=== PATIENT | female | born 1970 | race Caucasian/White ===

== ENCOUNTER → 2016-12-20 | Outpatient (CLI) | payer BC ==
[~2016-12-20] MED LIST: DIPH-437 PO; IBUP-1050 PO; JOLESSA PO
== END | disposition home or self-care (01) ==
LOC: C.PAPS 09:51
PROVIDERS: ATTEND Obstetrics & Gynecology
DX: Z01.419 Encounter for gynecological examination (general) (routine) without abnormal findings (principal)

== ENCOUNTER → 2017-02-01 | Outpatient (CLI) | payer BC ==
--- NOTE | 2017-02-01 16:36 | MAMMOGRAPHY REPORT ---
BILATERAL DIGITAL SCREENING MAMMOGRAM TOMOSYNTHESIS WITH CAD: 02/01/2017 CLINICAL HISTORY: Routine screening. Patient has no complaints. TECHNIQUE: Breast tomosynthesis in addition to standard 2D mammography was performed. Current study was also evaluated with a Computer Aided Detection (CAD) system. COMPARISON: Comparison is made to exam dated: 06/11/2013 mammogram - [facility]. BREAST COMPOSITION: The tissue of both breasts is heterogeneously dense, which may obscure small ma sses. FINDINGS: No suspicious masses, calcifications, or areas of architectural distortion are noted in e ither breast. There has been no significant interval change compared to prior exams. IMPRESSION: ACR BI-RADS CATEGORY 1: NEGATIVE There is no mammographic evidence of malignancy. A 1 year screening mammogram is recommended. The p atient will receive written notification of the results. Approximately 10% of breast cancers are not detected with mammography. A negative mammographic repor t should not delay biopsy if a clinically suggestive mass is present. Sari Post M.D. ah/:02/01/2017 15:30:07 Admissions Advisor: Cristine Huynh, [facility] letter sent: Normal 1/2 BI-RADS Code: ACR BI-RADS Category 1: Negative
== END | disposition home or self-care (01) ==
LOC: C.MAMM 14:54
PROVIDERS: ATTEND Obstetrics & Gynecology
DX: Z12.31 Encounter for screening mammogram for malignant neoplasm of breast (principal)

== ENCOUNTER → 2017-08-21 | Outpatient (CLI) | payer BC ==
--- NOTE | 2017-08-21 14:38 | DIAGNOSTIC IMAGING REPORT ---
BILATERAL LOWER EXTREMITY VENOUS DOPPLER CLINICAL HISTORY: Lower extremity swelling. Recent surgery. COMPARISON STUDY: No previous studies for comparison. TECHNIQUE: Sonography of the deep venous system of the bilateral lower extremities was performed. Compression and augmentation were evaluated. FINDINGS: The bilateral common femoral, superficial femoral and popliteal veins were compressible. Augmentation was normal. Flow was shown within the deep calf vessels. IMPRESSION: No evidence of deep venous thrombus within the bilateral lower extremities. Electronically signed by: Jose Spicer M.D. 08/21/2017 2:36 PM Dictated Date/Time: 08/21/2017 2:36 PM
== END | disposition home or self-care (01) ==
LOC: C.ULTR 13:58
PROVIDERS: ATTEND Family Medicine
DX: M79.89 Other specified soft tissue disorders (principal); M79.604 Pain in right leg; M79.605 Pain in left leg

== ENCOUNTER → 2017-09-21 | Outpatient (CLI) | payer BC ==
[2017-09-21 18:26] LABS: BASO % 0.4 %; BASO ABS # 0.03 K/uL (0-0.2); COMPLETE YES; EOS % 4.8 %; HEMATOCRIT 38.3 % (37-47); IG% 0.3 %; LYMPH % 39.9 %; LYMPH ABS # 3.02 K/uL (1.2-3.4); MEAN CELL VOLUME 89.7 fL (80-100); MEAN CORPUSCULAR HEMOGLOBIN 31.1 pg (25-34); MEAN CORPUSCULAR HGB CONC 34.7 g/dl (32-36); MEAN PLATELET VOLUME 9.5 fL (7.4-10.4); MONO % 5.9 %; NEUT % 48.7 %; PLATELET COUNT 321 K/uL (130-400); RED BLOOD COUNT 4.27 M/uL (4.2-5.4); WHITE BLOOD COUNT 7.57 K/uL (4.8-10.8)
[2017-09-21 19:05] LABS: ALKALINE PHOSPHATASE 58 U/L (45-117); ALT/SGPT 44 U/L (12-78); AMYLASE 55 U/L (25-115); AST/SGOT 36 U/L (15-37)
[2017-09-24 14:20] LABS: C-REACTIVE PROT HIGHSEN 6.9 MG/L
== END | disposition home or self-care (01) ==
LOC: C.LAB 17:51
PROVIDERS: ATTEND Nurse Practitioner Family
DX: R10.13 Epigastric pain (principal); L50.8 Other urticaria

== ENCOUNTER → 2017-09-27 | Outpatient (CLI) | payer BC ==
--- NOTE | 2017-09-27 12:19 | DIAGNOSTIC IMAGING REPORT ---
BILIARY ULTRASOUND CLINICAL HISTORY: EPIGASTRIC PAIN COMPARISON STUDY: Renal ultrasound dated 12/12/2011 FINDINGS: The pancreas appears sonographically normal. The liver appears sonographically normal. The gallbladder appears sonographically normal. There is no ductal dilatation. The common bile duct measures 4 mm. There is no right-sided hydronephrosis. IMPRESSION: Normal study Electronically signed by: Raymond Lion M.D. 09/27/2017 12:18 PM Dictated Date/Time: 09/27/2017 12:17 PM
== END | disposition home or self-care (01) ==
LOC: C.ULTR 11:52
PROVIDERS: ATTEND Nurse Practitioner Family
DX: R10.13 Epigastric pain (principal)

== ENCOUNTER → 2017-11-27 | Outpatient (CLI) | payer BC ==
[2017-11-29 18:36] LABS: CLAM CLASS 0/1; CLAM IGE 0.17 KU/L; CRAB CLASS 1; CRAB IGE 0.44 KU/L; LOBSTER CLASS 0/1; LOBSTER IGE 0.33 KU/L; SHRIMP CLASS 1; SHRIMP IGE 0.52 KU/L
== END | disposition home or self-care (01) ==
LOC: C.LAB1850 16:47
PROVIDERS: ATTEND Internal Medicine Pulmonary Disease
DX: L50.8 Other urticaria (principal); L50.3 Dermatographic urticaria; R12 Heartburn; J30.9 Allergic rhinitis, unspecified

== ENCOUNTER → 2017-12-24 | Outpatient (CLI) | payer BC | END | disposition home or self-care (01) | LOC: C.PAPS 08:55 | PROVIDERS: ATTEND Obstetrics & Gynecology | DX: Z01.419 Encounter for gynecological examination (general) (routine) without abnormal findings (principal) ==

== ENCOUNTER → 2018-07-04 | Outpatient (CLI) | payer BC ==
--- NOTE | 2018-07-04 12:59 | DIAGNOSTIC IMAGING REPORT ---
TWO VIEW CHEST CLINICAL HISTORY: Chronic pruritus. FINDINGS: PA and lateral chest radiographs are compared to chest x-ray and chest CT dated 06/25/2012. The cardiomediastinal silhouette is unremarkable. The lungs and pleural spaces are clear. There is no pneumothorax. The bony thorax appears intact. IMPRESSION: No active disease in the chest. Electronically signed by: Murali Beltran M.D. 07/04/2018 12:58 PM Dictated Date/Time: 07/04/2018 12:57 PM
== END | disposition home or self-care (01) ==
LOC: C.RAD 12:34
PROVIDERS: ATTEND Dermatology
DX: L63.9 Alopecia areata, unspecified (principal)

== ENCOUNTER 2020-01-20 23:02 | Observation (INO) ==
[2020-01-20] MEDS ORDERED: ONDANSETRON INJ 2 MG/ML 2 ML VIAL IV STA (23:24)
[2020-01-20] MEDS ORDERED: MoRPHine SULFATE 10 MG/ML CARP/VIAL IV STA (23:24)
[2020-01-20] MEDS ORDERED: SODIUM CHLORIDE 0.9% 1000ML 1,000 ML IV ONE (23:24)
[2020-01-20 23:51] LABS: Basophils # (auto) 0.02 K/uL (0-0.2); Basophils % (auto) 0.1 %; Eosinophils # (auto) 0.01 K/uL (0-0.5); Hematocrit (blood only) 39.6 % (37-47); Hemoglobin 13.6 g/dL (12.0-16.0); Immature Granulocytes # (auto) 0.05 K/uL (0.00-0.02); Immature Granulocytes % (auto) 0.2 %; Lymphocytes # (auto) 0.87 K/uL (1.2-3.4); Lymphocytes % (auto) 4.3 %; Mean Corpuscular Hemoglobin 30.6 pg (25-34); Mean Corpuscular Hgb Conc 34.3 g/dL (32-36); Mean Corpuscular Volume 89.2 fL (80-100); Mean Platelet Volume 9.6 fL (7.4-10.4); Monocytes # (auto) 0.43 K/uL (0.11-0.59); Monocytes % (auto) 2.1 %; Neutrophils # (auto) 18.78 K/uL (1.4-6.5); Neutrophils % (auto) 93.3 %; Platelet Count 344 K/uL (130-400); RDW Coefficient of Variation 12.4 % (11.5-14.5); RDW Standard Deviation 39.8 fL (36.4-46.3); Red Blood Count 4.44 M/uL (4.2-5.4); White Blood Count 20.16 K/uL (4.8-10.8)
[2020-01-20 23:56] LABS: Appearance Urine Cloudy (Clear); Bacteria Urine Automated Negative (Negative); Bilirubin Urine Negative (Negative); Blood Urine Trace (Negative); Color Urine Yellow; Epithelial Cell Urine Auto >30 /lpf (0-5); Glucose Urine UA Negative (Negative); Leukocyte Esterase Urine Negative (Negative); Nitrite Urine Negative (Negative); Protein Urine Negative (Negative); RBC Urine Automated 0-4 /hpf (0-4); Specific Gravity Urine 1.025 (1.000-1.030); Urobilinogen Urine Negative (Negative)
[2020-01-21] LABS: Ketones Urine 4+ (Negative)
[2020-01-21] MEDS ORDERED: HYDROmorphone INJ 0.5 MG/0.5 ML SYR IV STA (00:13)
[2020-01-21 00:14] LABS: Albumin Level 3.7 gm/dl (3.4-5.0); BUN Creatinine Ratio 11.9 (10-20); Calcium 9.4 mg/dl (8.5-10.1); Creatinine Clr Calc Pharmacy 78.8 ml/min; Est GFR (African American) 80.6; Est GFR (Non-African American) 69.6; Potassium 3.9 mmol/L (3.5-5.1)
[2020-01-21 00:17] LABS: Albumin Globulin Ratio 0.9 (0.9-2); Bilirubin,Total 0.7 mg/dl (0.2-1); Total Protein 7.7 gm/dl (6.4-8.2)
[2020-01-21] MEDS ORDERED: IOVERSOL 100ml IV PRN (00:40)
[2020-01-21] MEDS ORDERED: ONDANSETRON INJ 2 MG/ML 2 ML VIAL IV PRN ×2 (01:47→08:20)
[2020-01-21] MEDS ORDERED: ACETAMINOPHEN 1,000 MG/100 ML VIAL IV PRN (01:47)
[2020-01-21] MEDS ORDERED: HYDROmorphone INJ 1 MG/ML SYRINGE IV PRN (01:47)
[2020-01-21] MEDS ORDERED: HYDROmorphone INJ 0.5 MG/0.5 ML SYR IV PRN (01:50)
[2020-01-21] MEDS: SODIUM CHLORIDE 0.9% 1000ML 1,000 ML IV SCH ×2 (01:59→15:08)
--- NOTE | 2020-01-21 04:13 | Emergency Department Note ---
History of Present Illness General Chief complaint: Abdominal Pain Stated complaint: STOMACH PAIN, VOMITING Time Seen by Provider: 01/20/20 23:09 Source: patient Mode of arrival: ambulatory Limitations: no limitations History of Present Illness Maximum Pain Intensity: 5 This patient is a 49-year-old female who presents to the emergency department for evaluation of abdominal pain and vomiting. Patient reports that her stomach was slightly upset last night, but she had no significant pain. She states that about 8 hours prior to arrival, she ate lunch and then developed a burning pain throughout her abdomen. Pain has gradually worsened and has moved from the upper abdomen down to the lower abdomen. She has vomited 7 times. She reports she has had chills. She states pain worsens with movement. She has not taken any medication for the pain. She rates her current discomfort a 7/10. She denies any medical problems. She has had 2 prior C-sections. She states that her last bowel movement was this morning, which is unusual for her because she usually has 3-4 bowel movements per day. She has not taken her temperature. Home Medications Home Medications Medication Instructions Recorded Confirmed Type Elderberry Supplement 1 dose PO DAILY 01/20/20 01/20/20 History levonorgestrel-ethinyl estrad 1 tab PO DAILY 01/20/20 01/20/20 History [Jolessa] omega 7-cku-gie-fish oil [Fish Oil] 1 cap PO DAILY 01/20/20 01/20/20 History Allergies Allergy/AdvReac Type Severity Reaction Status Date / Time moxifloxacin [From Avelox] Allergy Mild nausea/vomi Verified 01/20/20 23:52 ting Quinolones AdvReac Unknown N& V Verified 01/20/20 23:52 CAT GUT SUTURES AdvReac Unknown OPENED Uncoded 01/20/20 23:52 INCISION AND DRAINAGE Past Med/Surg History Medical History (Updated 01/21/20 @ 06:35 by Adeline Walters PA-C) No significant past medical history Surgical History H/O vein stripping History of section S/P wisdom tooth extraction Social History Preferred Language: Italian Communication Ability: 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 Beliefs That Will Affect Care: None Current Living Situation: Spouse Feels Safe at Home: Yes Smoking Status: Never smoker Hx Alcohol Use: Yes Hx Substance Use: No Review of Systems A total of 10 systems reviewed and were otherwise negative Physical Exam Vital Signs Vital Signs - 24 hr 01/20/20 23:06 01/20/20 23:44 01/21/20 00:00 Temperature 36.5 C Temperature Source Oral Pulse Rate 87 90 87 Pulse Rate from SpO2 Sensor 89 88 Respiratory Rate 18 24 18 Blood Pressure 101/72 141/92 H 149/90 H Blood Pressure Mean 81 113 107 Pulse Oximetry 100 100 96 Oxygen Delivery Method Room Air Room Air Room Air Sepsis Recent Fever Within 48 Hours No Sepsis New/Unexplained Change in Mental Status No Sepsis Action Taken by Nursing No Action Required 01/21/20 00:42 01/21/20 01:00 Temperature Temperature Source Pulse Rate 94 H 81 Pulse Rate from SpO2 Sensor 94 H 86 Respiratory Rate 17 18 Blood Pressure 158/83 H 148/86 H Blood Pressure Mean 100 101 Pulse Oximetry 99 97 Oxygen Delivery Method Room Air Room Air Sepsis Recent Fever Within 48 Hours Sepsis New/Unexplained Change in Mental Status Sepsis Action Taken by Nursing VITALS: Vitals are noted on the nurse's note and reviewed by myself. GENERAL: This is a 49-year-old female, uncomfortable., well-developed well- nourished. SKIN: The skin was without rashes. EARS: External auditory canals clear, tympanic membranes pearly obrien without erythema or effusion bilaterally. EYES: Pupils equal round and reactive to light and accommodation. No scleral icterus. MOUTH: Mucous membranes moist. Tonsils are not enlarged. Pharynx without erythema or exudate. NECK: Supple without nuchal rigidity. No lymphadenopathy. HEART: Regular rate and rhythm without murmurs gallops or rubs. LUNGS: Clear to auscultation bilaterally without wheezes, rales or rhonchi. ABDOMEN: Positive bowel sounds x 4. Abdomen is soft with mild tenderness throughout, significant tenderness to palpation in the right lower quadrant. Positive rebound tenderness. NEURO: Patient was alert and oriented to person place and time. Course Consultations Consultation #1: Dr. Bolton - general surgery Administered Medications Hydromorphone HCl (Dilaudid) 0.5 mg IV Q3H PRN PRN Reason: MODERATE Pain (Scale 4,5,6) Stop: 02/04/20 01:49 Last Admin: 01/21/20 03:46 Dose: 0.5 mg Documented by: [id number] Acetaminophen (Ofirmev) 1,000 mg in 100 mls @ 400 mls/hr IV Q8H PRN PRN Reason: MILD Pain (Scale 1,2,3) Stop: 01/24/20 01:46 Last Infusion: 01/21/20 02:34 Dose: 0 mls/hr Documented by: [id number] Admin: 01/21/20 01:59 Dose: 400 mls/hr Documented by: [id number] Sodium Chloride (Nss 1000ml) 1,000 mls @ 150 mls/hr IV .Q6H40M JOSE Stop: 02/20/20 01:46 Last Admin: 01/21/20 01:59 Dose: 150 mls/hr Documented by: [id number] Ioversol (Optiray 320 100ml) 100 ml IV ONCE PRN PRN Reason: Interaction Checking Stop: 01/25/20 00:39 Last Admin: 01/21/20 00:40 Dose: 93 ml Documented by: [id number] Discontinued Medications Hydromorphone HCl (Dilaudid) 0.5 mg IV NOW STA Stop: 01/21/20 00:14 Last Admin: 01/21/20 00:16 Dose: 0.5 mg Documented by: [id number] Sodium Chloride (Nss 1000ml) 1,000 mls @ 999 mls/hr IV .Q1H1M ONE Stop: 01/21/20 00:24 Last Infusion: 01/21/20 00:45 Dose: 0 mls/hr Documented by: [id number] Admin: 01/20/20 23:38 Dose: 999 mls/hr Documented by: [id number] Morphine Sulfate (Morphine Sulfate) 6 mg IV NOW STA Stop: 01/20/20 23:25 Last Admin: 01/20/20 23:39 Dose: 6 mg Documented by: [id number] Ondansetron HCl (Zofran) 4 mg IV NOW STA Stop: 01/20/20 23:25 Last Admin: 01/20/20 23:39 Dose: 4 mg Documented by: [id number] Medical Decision Making Differential Diagnosis Differential diagnosis includes appendicitis, diverticulitis, bowel obstruction, inflammatory bowel disease, renal colic, PUD, biliary pathology, pancreatitis, mesenteric ischemia, aortic pathology, infection, genitourinary, UTI, perforated viscus, among others. Home Medications Current Medication List: was personally reviewed by me Laboratory Data Attestation: I reviewed the patient's lab results. Result diagrams: 01/20/20 23:33 01/20/20 23:33 Lab Results 01/20/20 01/20/20 01/20/20 Range/Units 23:33 23:33 23:33 WBC 20.16 H (4.8-10.8) K/uL RBC 4.44 (4.2-5.4) M/uL Hgb 13.6 (12.0-16.0) g/dL Hct 39.6 (37-47) % MCV 89.2 (80-100) fL MCH 30.6 (25-34) pg MCHC 34.3 (32-36) g/dL RDW Std Deviation 39.8 (36.4-46.3) fL RDW Coeff of Berkley 12.4 (11.5-14.5) % Plt Count 344 (130-400) K/uL MPV 9.6 (7.4-10.4) fL Immature Gran % (Auto) 0.2 % Neut % (Auto) 93.3 % Lymph % (Auto) 4.3 % Mcpherson % (Auto) 2.1 % Eos % (Auto) 0.0 % Baso % (Auto) 0.1 % Immature Gran # (Auto) 0.05 H (0.00-0.02) K/uL Neut # (Auto) 18.78 H (1.4-6.5) K/uL Lymph # (Auto) 0.87 L (1.2-3.4) K/uL Mcpherson # (Auto) 0.43 (0.11-0.59) K/uL Eos # (Auto) 0.01 (0-0.5) K/uL Baso # (Auto) 0.02 (0-0.2) K/uL Sodium 135 L (136-145) mmol/L Potassium 3.9 (3.5-5.1) mmol/L Chloride 105 (98-107) mmol/L Carbon Dioxide 20 L (21-32) mmol/L Anion Gap 10.0 (3-11) BUN 12 (7-18) mg/dl Creatinine 0.97 (0.6-1.2) mg/dl Est Cr Clr Drug Dosing 78.8 ml/min Est GFR ( Amer) 80.6 Est GFR (Non-Af Amer) 69.6 BUN/Creatinine Ratio 11.9 (10-20) Glucose 127 H (70-99) mg/dl Calcium 9.4 (8.5-10.1) mg/dl Total Bilirubin 0.7 (0.2-1) mg/dl AST 12 L (15-37) U/L ALT 29 (12-78) U/L Alkaline Phosphatase 60 (45-117) U/L Total Protein 7.7 (6.4-8.2) gm/dl Albumin 3.7 (3.4-5.0) gm/dl Globulin 4.0 (2.5-4.0) gm/dl Albumin/Globulin Ratio 0.9 (0.9-2) Urine Color Yellow Urine Appearance Cloudy A (Clear) Urine pH 5.0 (4.5-7.5) Ur Specific [place] 1.025 (1.000-1.030) Urine Protein Negative (Negative) Urine Glucose (UA) Negative (Negative) Urine Ketones 4+ H (Negative) Urine Blood Trace H (Negative) Urine Nitrite Negative (Negative) Urine Bilirubin Negative (Negative) Urine Urobilinogen Negative (Negative) Ur Leukocyte Esterase Negative (Negative) Urine WBC (Auto) 1-5 (0-5) /hpf Urine RBC (Auto) 0-4 (0-4) /hpf U Hyaline Cast (Auto) 1-5 (0-5) /lpf U Epithel Cells (Auto) >30 H (0-5) /lpf Urine Bacteria (Auto) Negative (Negative) POC Ur Test (NEG) 01/20/20 Range/Units 23:45 WBC (4.8-10.8) K/uL RBC (4.2-5.4) M/uL Hgb (12.0-16.0) g/dL Hct (37-47) % MCV (80-100) fL MCH (25-34) pg MCHC (32-36) g/dL RDW Std Deviation (36.4-46.3) fL RDW Coeff of Berkley (11.5-14.5) % Plt Count (130-400) K/uL MPV (7.4-10.4) fL Immature Gran % (Auto) % Neut % (Auto) % Lymph % (Auto) % Mcpherson % (Auto) % Eos % (Auto) % Baso % (Auto) % Immature Gran # (Auto) (0.00-0.02) K/uL Neut # (Auto) (1.4-6.5) K/uL Lymph # (Auto) (1.2-3.4) K/uL Mcpherson # (Auto) (0.11-0.59) K/uL Eos # (Auto) (0-0.5) K/uL Baso # (Auto) (0-0.2) K/uL Sodium (136-145) mmol/L Potassium (3.5-5.1) mmol/L Chloride (98-107) mmol/L Carbon Dioxide (21-32) mmol/L Anion Gap (3-11) BUN (7-18) mg/dl Creatinine (0.6-1.2) mg/dl Est Cr Clr Drug Dosing ml/min Est GFR ( Amer) Est GFR (Non-Af Amer) BUN/Creatinine Ratio (10-20) Glucose (70-99) mg/dl Calcium (8.5-10.1) mg/dl Total Bilirubin (0.2-1) mg/dl AST (15-37) U/L ALT (12-78) U/L Alkaline Phosphatase (45-117) U/L Total Protein (6.4-8.2) gm/dl Albumin (3.4-5.0) gm/dl Globulin (2.5-4.0) gm/dl Albumin/Globulin Ratio (0.9-2) Urine Color Urine Appearance (Clear) Urine pH (4.5-7.5) Ur Specific [place] (1.000-1.030) Urine Protein (Negative) Urine Glucose (UA) (Negative) Urine Ketones (Negative) Urine Blood (Negative) Urine Nitrite (Negative) Urine Bilirubin (Negative) Urine Urobilinogen (Negative) Ur Leukocyte Esterase (Negative) Urine WBC (Auto) (0-5) /hpf Urine RBC (Auto) (0-4) /hpf U Hyaline Cast (Auto) (0-5) /lpf U Epithel Cells (Auto) (0-5) /lpf Urine Bacteria (Auto) (Negative) POC Ur Test NEG (NEG) Imaging Data Attestation: I personally reviewed and interpreted this imaging study as follows: Radiologist's Impression: CT ABDOMEN & PELVIS With Contrast: Appendicitis. The inflamed appendix measures 11 mm and contains appendicoliths. Surrounding inflammation. No abscess. Fat-containing umbilical hernia. Radiologist: Debra Grady M.D. Blood Pressure Blood Pressure Findings: Elevated blood pressure Blood Pressure Disposition: elevated BP felt to be situational MDM Narrative The patient is a 49-year-old female who presents today complaining of abdominal pain. Labs revealed a leukocytosis of 20,000, no anemia or concerning electrolyte abnormalities. CT was performed and shows evidence of uncomplicated appendicitis. Case was discussed with the surgeon, who will admit the patient for operative management. Patient did receive IV morphine, Zofran and Dilaudid in the emergency department for symptom control. She remained hemodynamically stable. She was agreeable with the plan of care. Impression & Plan Acute appendicitis Discharge Plan Visit Data *Final* Discharge Date/Time: 01/21/20 01:34 Chief Complaint: Abdominal Pain Stated Complaint: STOMACH PAIN, VOMITING ED Provider: Dank Fine ED Midlevel Provider: Adeline Walters Discharge Problem: Acute appendicitis Patient Disposition: Admitted As Inpatient Discharge Instructions Interventions: ED Discharge Assessment Last Done: 01/21/20 01:34
--- NOTE | 2020-01-21 06:40 | CT Scan Report ---
CT abd pelvis IV con only CLINICAL HISTORY: Right lower quadrant abdominal pain and vomiting COMPARISON STUDY: None. TECHNIQUE: The patient was scanned in a dynamic helical fashion during intravenous administration of 93 cc of Optiray 320 A dose lowering technique was utilized adhering to the principles of ALARA. CT DOSE: 519.47 mGy.cm FINDINGS: Lower chest: There are mild dependent atelectatic changes. Liver: The contrast-enhanced liver is normal in size, contour, and attenuation. There is no intrahepa tic biliary ductal dilatation. The hepatic veins and portal veins are patent. Gallbladder: Unremarkable. Spleen: Normal in size and attenuation. Pancreas: Unremarkable. Adrenal glands: Unremarkable. Kidneys: There is symmetric renal cortical enhancement. The kidneys are normal in size without hydron ephrosis. Bowel: There are no transition zones indicate bowel obstruction. There is no evidence of acute divert iculitis. There is a dilated appendix with periappendiceal stranding. The appendix measures 11 mm in diameter. Two faintly opaque appendicoliths are visualized. The findings are indicative of acute appe ndicitis. Peritoneum: There is no intraperitoneal free air or abdominal ascites. There is a tiny fat-containing umbilical hernia Vasculature: The abdominal aorta is normal in course and caliber. Adenopathy: None. Pelvic viscera: The bladder, and pelvic viscera are unremarkable. Skeletal structures: No destructive osseous lesions are seen. IMPRESSION: Acute appendicitis. ACT 112: Negative or not required by law. Electronically signed by: Raymond Lion M.D. 01/21/2020 6:39 AM
--- NOTE | 2020-01-21 07:28 | History & Physical Report ---
Date of Service January 21, 2020 Assessment & Plan (1) Acute appendicitis: This is a 49y F with no significant medical history who presented to the [facility] ED on 01/20/20 with complaints of abdominal pain, nausea, and vomiting. Workup in the ED revealed an elevated WBC of [address] scan with findings concerning for acute appendicitis. Patient agreeable to surgical intervention. We will book her for the OR for a laparoscopic appendectomy and keep her NPO with IVF. Surgical consent will be obtained by the surgeon. as above. pt seen. discussed options/risks ( bleeding/infection/dvt/pe/mi/injury to another organ/abcess etc.... will proceed with lap/poss open appendectomy. questions answered. pt agreeable. History of Present Illness Primary Care Provider: Chester Ayon MD This is a 49y F with no significant medical history who presented to the [facility] ED on 01/20/20 with complaints of abdominal pain, nausea, and vomiting. Patient states that she started feeling ill last -Sunday and thought she was getting sick, but over the wk she felt much better. Then starting Sunday patient reports developing intermittent abdominal pain and a generalized burning feeling in her abdomen after eating meals. These symptoms continued to worsen and yesterday she started vomiting multiple times from 4p-10p and she came to the ED for evaluation. Patient said her belly pain was all over, until after she received morphine in the ED it localized to her right lower abdomen and became sharp. Workup in the ED revealed a WBC of [address] a/p with evidence of acute appendicitis. Patient was admitted under the general surgery service and made NPO with IVF. Allergies Allergy/AdvReac Type Severity Reaction Status Date / Time moxifloxacin [From Avelox] Allergy Mild nausea/vomi Verified 01/20/20 23:52 ting Quinolones AdvReac Unknown N& V Verified 01/20/20 23:52 CAT GUT SUTURES AdvReac Unknown OPENED Uncoded 01/20/20 23:52 INCISION AND DRAINAGE Home Medications Home Medications Medication Instructions Recorded Confirmed Type Elderberry Supplement 1 dose PO DAILY 01/20/20 01/20/20 History levonorgestrel-ethinyl estrad 1 tab PO DAILY 01/20/20 01/20/20 History [Jolessa] omega 4-yzm-uvv-fish oil [Fish Oil] 1 cap PO DAILY 01/20/20 01/20/20 History Past Med/Surg History Medical History No significant past medical history Surgical History H/O vein stripping History of section S/P wisdom tooth extraction Social History Preferred Language: Russian Communication Ability: Effective 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 burning now sharp right lower abd pain), + nausea and + vomiting; no change in bowel habits Genitourinary: no urinary symptoms Physical Exam Physical Exam: awake/alert Constitutional: well developed and well nourished; no acute distress Respiratory: normal respiratory effort Gastrointestinal (Abdomen): Inspection/Auscultation: + abdominal surgical scar (from prior ) Percussion/Palpation: + abdomen tender (TTP in RLQ, + rovsings) and abdomen soft Results & Data Vital Signs (Past 12 Hours) Vital Signs Temp Pulse Pulse Resp BP BP Pulse Ox 01/21/20 07:18 37.4 C 19 132/74 97 01/21/20 02:15 142/76 H 01/21/20 01:43 36.9 C 87 16 170/79 H 97 01/21/20 01:30 89 19 145/87 H 97 01/21/20 01:00 81 18 148/86 H 97 01/21/20 00:42 94 H 17 158/83 H 99 01/21/20 00:00 87 18 149/90 H 96 01/20/20 23:44 90 24 141/92 H 100 01/20/20 23:06 36.5 C 87 18 101/[address] abd pelvis IV con only CLINICAL HISTORY: Right lower quadrant abdominal pain and vomiting COMPARISON STUDY: None. TECHNIQUE: The patient was scanned in a dynamic helical fashion during intravenous administration of 93 cc of Optiray 320 A dose lowering technique was utilized adhering to the principles of ALARA. CT DOSE: 519.47 mGy.cm FINDINGS: Lower chest: There are mild dependent atelectatic changes. Liver: The contrast-enhanced liver is normal in size, contour, and attenuation. There is no intrahepatic biliary ductal dilatation. The hepatic veins and portal veins are patent. Gallbladder: Unremarkable. Spleen: Normal in size and attenuation. Pancreas: Unremarkable. Adrenal glands: Unremarkable. Kidneys: There is symmetric renal cortical enhancement. The kidneys are normal in size without hydronephrosis. Bowel: There are no transition zones indicate bowel obstruction. There is no evidence of acute diverticulitis. There is a dilated appendix with periappendiceal stranding. The appendix measures 11 mm in diameter. Two faintly opaque appendicoliths are visualized. The findings are indicative of acute appendicitis. Peritoneum: There is no intraperitoneal free air or abdominal ascites. There is a tiny fat-containing umbilical hernia Vasculature: The abdominal aorta is normal in course and caliber. Adenopathy: None. Pelvic viscera: The bladder, and pelvic viscera are unremarkable. Skeletal structures: No destructive osseous lesions are seen. IMPRESSION: Acute appendicitis. ACT 112: Negative or not required by law. Electronically signed by: Raymond Lion M.D. 01/21/2020 6:39 AM Code Status & VTE Plan VTE Prophylaxis Plan VTE Prophylaxis will be ordered: Yes PG Care Time/CCT Total # of Minutes Spent Total Time Spent with Patient: Total time spent is greater than 50% in coordination of care (as documented) at patient's floor/unit and/or counseling patient: Coding Level of Care Code 04251 Initial Inpt Care Lvl 3 Diagnoses Acute appendicitis K35.30 Acute appendicitis type: with localized peritonitis Appendicitis abscess presence: without abscess Appendicitis gangrene presence: unspecified whether gangrene present Appendicitis perforation presence: without perforation (1) Acute appendicitis Acute appendicitis type: with localized peritonitis Appendicitis abscess presence: without abscess Appendicitis gangrene presence: unspecified whether gangrene present Appendicitis perforation presence: without perforation Qualified Code(s): K35.30 - Acute appendicitis with localized peritonitis, without perforation or gangrene
[2020-01-21] MEDS ORDERED: BUPIVACAINE/EPINEPHRINE 0.5% MPF 1:200,000 10 ML VIAL ONE (07:53)
[2020-01-21] MEDS ORDERED: MIDAZOLAM HCL 1 MG/ML 2ML VIAL ONE (07:54)
[2020-01-21] MEDS ORDERED: fentaNYL citrate 100 MCG/2 ML VIAL ONE (07:54)
--- NOTE | 2020-01-21 08:11 | Anesthesiology Consultation ---
Date of Service January 21, 2020 Assessment & Plan (1) Encounter for pre-operative examination: Chart Review Chart Review: Acceptable Risk for Surgery and Patient NOT seen in Pre Admission Testing Consults Requested none History Surgery Operation Date: 01/21/20 08:30 Proposed Procedures p Laparoscopic Appendectomy - Asif Bolton, Height/Weight Height: 5 ft 6 in Weight: 85 kg Allergies Allergy/AdvReac Type Severity Reaction Status Date / Time moxifloxacin [From Avelox] Allergy Mild nausea/vomi Verified 01/20/20 23:52 ting Quinolones AdvReac Unknown N& V Verified 01/20/20 23:52 CAT GUT SUTURES AdvReac Unknown OPENED Uncoded 01/20/20 23:52 INCISION AND DRAINAGE Medications Home Medications Medication Instructions Recorded Confirmed Last Taken Elderberry Supplement 1 dose PO DAILY 01/20/20 01/20/20 Unknown levonorgestrel-ethinyl estrad 1 tab PO DAILY 01/20/20 01/20/20 Unknown [Jolessa] omega 1-mhu-rjv-fish oil [Fish Oil] 1 cap PO DAILY 01/20/20 01/20/20 Unknown Active Medications Generic Name Dose Route Start Last Admin Trade Name Freq PRN Reason Stop Dose Admin Hydromorphone HCl 0.5 mg 01/21/20 01:50 01/21/20 03:46 Dilaudid IV 02/04/20 01:49 0.5 mg Q3H PRN Administration MODERATE Pain (Scale 4,5,6) Hydromorphone HCl 1 mg 01/21/20 01:47 01/21/20 06:46 Dilaudid IV 02/04/20 01:46 1 mg Q3H PRN Administration SEVERE Pain (Scale 7,8,9,10) Acetaminophen 1,000 mg in 100 mls @ 400 mls/hr 01/21/20 01:47 01/21/20 02:34 Ofirmev IV 01/24/20 01:46 Infused Q8H PRN Infusion MILD Pain (Scale 1,2,3) Sodium Chloride 1,000 mls @ 150 mls/hr 01/21/20 01:47 01/21/20 01:59 Nss 1000ml IV 02/20/20 01:46 150 mls/hr .Q6H40M JOSE Administration Ioversol 100 ml 01/21/20 00:40 01/21/20 00:40 Optiray 320 100ml IV 01/25/20 00:39 93 ml ONCE PRN Administration Interaction Checking NPO Date Last Intake of Fluids: 01/20/20 Date Last Intake of Solids: 01/20/20 Past Medical History Medical History No significant past medical history Past Surgical History Surgical History H/O vein stripping History of section S/P wisdom tooth extraction Social History Smoking Status: Never smoker Hx Alcohol Use: Yes alcohol intake frequency: holidays/special occasions only Hx Substance Use: No Physical Exam Vital Signs Last Vital Signs Temp 37.4 C 01/21/20 07:18 Pulse 87 01/21/20 01:43 Resp 19 01/21/20 07:18 BP 132/74 01/21/20 07:18 Pulse Ox 97 01/21/20 07:18 Testing Laboratory Results 01/20/20 23:33 01/20/20 23:33 Urine Color Yellow 01/20/20 23:33 Urine Appearance Cloudy (Clear) A 01/20/20 23:33 Urine pH 5.0 (4.5-7.5) 01/20/20 23:33 Ur Specific [place] 1.025 (1.000-1.030) 01/20/20 23:33 Urine Protein Negative (Negative) 01/20/20 23:33 Urine Glucose (UA) Negative (Negative) 01/20/20 23:33 Urine Ketones 4+ (Negative) H 01/20/20 23:33 Urine Nitrite Negative (Negative) 01/20/20 23:33 Ur Leukocyte Esterase Negative (Negative) 01/20/20 23:33 Urine WBC (Auto) 1-5 /hpf (0-5) 01/20/20 23:33 Urine RBC (Auto) 0-4 /hpf (0-4) 01/20/20 23:33 U Hyaline Cast (Auto) 1-5 /lpf (0-5) 01/20/20 23:33 U Epithel Cells (Auto) >30 /lpf (0-5) H 01/20/20 23:33 Urine Bacteria (Auto) Negative (Negative) 01/20/20 23:33 01/20/20 23:45 POC Ur Test NEG
[2020-01-21] MEDS ORDERED: ATROPINE SULFATE 0.1 MG/ML 10ML SYR IV PRN (08:20)
[2020-01-21] MEDS ORDERED: PROMETHAZINE HCL 12.5 MG in SODIUM CHLORIDE 0.9% 50 ML IV PRN (08:20)
[2020-01-21] MEDS ORDERED: ePHEDrine sulfate 50 MG/ML AMP IV PRN (08:20)
[2020-01-21] MEDS ORDERED: HYDROmorphone INJ 2 MG/ML SYR/VIAL IV PRN (08:20)
[2020-01-21] MEDS ORDERED: CEFAZOLIN 2,000 MG/15 ML IV PUSH IV ONE (08:45)
[2020-01-21] MEDS ORDERED: DEXAMETHASONE SOD INJ 4 MG/ML VIAL ONE (09:17)
[2020-01-21] MEDS ORDERED: PROPOFOL IV EMULSION 10 MG/ML 20 ML VIAL IV ONE (09:17)
[2020-01-21] MEDS ORDERED: SUCCINYLCHOLINE CHLORIDE 20 MG/ML 10 ML VIAL ONE (09:17)
[2020-01-21] MEDS ORDERED: LIDOCAINE HCL 2% 2 ML VIAL/AMP(20MG/ML) INFIL ONE (09:17)
[2020-01-21] MEDS ORDERED: ONDANSETRON INJ 2 MG/ML 2 ML VIAL ONE (09:17)
[2020-01-21] MEDS ORDERED: ROCURONIUM BROMIDE 10 MG/ML 5 ML VIAL ONE (09:17)
[2020-01-21] MEDS ORDERED: LARYING-O-JET KIT (LTA) ONE (10:07)
[2020-01-21] MEDS: fentaNYL citrate 100 MCG/2 ML VIAL IV PRN ×2 (10:19→10:25)
--- NOTE | 2020-01-21 10:41 | Operative Report ---
PG Post Operative Report Pre & Post Diagnosis Operation Date: 01/21/20 08:30 Pre-Op Diagnosis: Acute appendicitis Post-Op Diagnosis: Acute appendicitis; adhesions I identified the patient and participated in the time-out.: Yes Procedure Operation Date: 01/21/20 08:30 Actual Procedures p Laparoscopic Appendectomy(Not Applicable) - Asif Bolton DO Surgeon Asif Bolton DO [facility]ineedle [place] Estimated Blood Loss 5 Findings Consistent with Post-Op Diagnosis Specimens appendix Description of Procedure After informed consent was obtained the patient was taken to the operating room and placed in supine position. After successful intubation a Lopez catheter was placed and the left arm was tucked. A Lopez catheter was inserted sterilely. I began by making a periumbilical incision with an 11 blade scalpel and carried this down through the soft tissue using electrocautery. The anterior rectus fascia was opened using electrocautery and 2 #0 Vicryl stay sutures were placed. The peritoneum was elevated using hemostats and incised under direct vision using a Metzenbaum scissor. A finger sweep was performed. A 12 mm Farias trocar was placed and the abdomen was insufflated to 18 mmHg. A laparoscope was inserted and the abdomen was examined in 360. A suprapubic 5 mm port and a left lower quadrant 12 mm port were placed under direct vision. There were some adhesions in the lower abdomen. I began by taking these down with cautery scissors. Next, the patient was air planed to the left as well as placed in a slight Trendelenburg position. We began by looking in the right lower quadrant. We were able to readily identify the appendix and it was grossly inflamed. It had not perforated. There is a small amount of purulent fluid in the right lower quadrant and the pelvis. We immediately irrigated and suctioned this out. I was able to use primarily blunt dissection to pull the appendix away from the right lower quadrant sidewall. I was then able to use a PARRISH odilia cartridge stapler to transect both the mesentery of the appendix as well as the appendix itself at its base with the cecum. It was then placed into an Endo Catch bag and removed from the camera port site. We thoroughly irrigated the right lower quadrant as well as the pelvis. There was adequate hemostasis. I ran the small bowel backwards from the terminal ileum for about 6 feet all of which was normal. All the peritoneal surfaces were normal. Small/ large bowel, liver, stomach etc. all appeared grossly normal. We did a final irrigation and then removed all the trochars and desufflated the abdomen. The fascia of the camera port as well as the left lower quadrant were closed using 0 Vicryl in figure-of- eight fashion. Wounds were all irrigated and closed using 4-0 Monocryl. Marcaine was injected around them for postoperative analgesia and skin glue used as a dressing. The patient was awakened extubated and transferred to recovery in stable condition. My physician's psychiatric technician assistant was present through the entire case. She assisted with prepping the patient and helped with exposure for port placement, helped run the camera and helped with fascial/wound closure at the end of the procedure as well as dressing placement. I attest to the content of the Intraoperative Record and any orders documented therein. Any exceptions are noted below. I attest to the content of the Intraoperative Record and any orders documented therein. Any exceptions are noted below.
[2020-01-21] MEDS ORDERED: LACTATED RINGER'S 1,000 ML IV SCH (11:05)
[2020-01-21] MEDS ORDERED: HYDROCODONE/ACETAMOPHEN 5/325MG TAB PO PRN (11:05)
[2020-01-21] MEDS: HYDROCODONE/ACETAMOPHEN 5/325MG TAB PO PRN ×2 (11:32→12:35)
--- NOTE | 2020-01-21 13:22 | Anesthesiology Progress Note ---
Date of Service January 21, 2020 Anesthesia Post Procedure Vital Signs Vital Signs: Temp Pulse Pulse Pulse Pulse Resp BP 01/21/20 13:10 76 15 01/21/20 11:59 36.6 C 75 18 01/21/20 11:34 36.6 C 80 17 01/21/20 11:00 37.2 C 87 16 01/21/20 10:55 78 13 01/21/20 10:50 37.2 C 81 13 01/21/20 10:40 81 11 L 01/21/20 10:30 94 H 15 01/21/20 10:20 90 21 01/21/20 10:10 75 11 L 01/21/20 10:01 36.7 C 90 16 01/21/20 08:33 37.4 C 102 H 20 01/21/20 07:18 37.4 C 19 01/21/20 02:15 01/21/20 01:43 36.9 C 87 16 01/21/20 01:30 89 19 145/87 H 01/21/20 01:00 81 18 148/86 H 01/21/20 00:42 94 H 17 158/83 H 01/21/20 00:00 87 18 149/90 H 01/20/20 23:44 90 24 141/92 H 01/20/20 23:06 36.5 C 87 18 101/72 BP Pulse Ox 01/21/20 13:10 129/74 97 01/21/20 11:59 145/78 H 96 01/21/20 11:34 142/82 H 96 01/21/20 11:00 119/73 96 01/21/20 10:55 116/76 98 01/21/20 10:50 114/57 L 98 01/21/20 10:40 128/76 98 01/21/20 10:30 114/65 98 01/21/20 10:20 115/65 100 01/21/20 10:10 118/67 100 01/21/20 10:01 128/61 98 01/21/20 08:33 152/85 H 96 01/21/20 07:18 132/74 97 01/21/20 02:15 142/76 H 01/21/20 01:43 170/79 H 97 01/21/20 01:30 97 01/21/20 01:00 97 01/21/20 00:42 99 03/11/20 00:00 96 01/20/20 23:44 100 01/20/20 23:06 100 Pain Intensity Abdomen: Pain Intensity: 4 Transfer of Care Handoff Completed per policy Notes Mental Status: alert / awake / arousable and participated in evaluation Patient Amnestic to Procedure: Yes Nausea / Vomiting: adequately controlled Pain: adequately controlled Airway Patency, RR, SpO2: stable & adequate BP & HR: stable & adequate Hydration State: stable & adequate Anesthetic Complications: no major complications apparent and Pt Satisfied with anesthetic care
--- NOTE | 2020-01-21 15:36 | Discharge Summary ---
Date of Service January 21, 2020 Admission HPI Per Admitting Provider This is a 49y F with no significant medical history who presented to the [facility] ED on 01/20/20 with complaints of abdominal pain, nausea, and vomiting. Patient states that she started feeling ill last -Sunday and thought she was getting sick, but over the wknd she felt much better. Then starting Sunday patient reports developing intermittent abdominal pain and a generalized burning feeling in her abdomen after eating meals. These symptoms continued to worsen and yesterday she started vomiting multiple times from 4p-10p and she came to the ED for evaluation. Patient said her belly pain was all over, until after she received morphine in the ED it localized to her right lower abdomen and became sharp. Workup in the ED revealed a WBC of [address] a/p with evidence of acute appendicitis. Patient was admitted under the general surgery service and made NPO with IVF. Principal Diagnosis Acute appendicitis Discharge Exam Gastrointestinal (Abdomen) Inspection/Auscultation: + abdominal surgical incision (clean, dry) Percussion/Palpation: abdomen soft Discharge Data Allergies Allergy/AdvReac Type Severity Reaction Status Date / Time moxifloxacin [From Avelox] Allergy Mild nausea/vomi Verified 01/20/20 23:52 ting Quinolones AdvReac Unknown N& V Verified 01/20/20 23:52 CAT GUT SUTURES AdvReac Unknown OPENED Uncoded 01/20/20 23:52 INCISION AND DRAINAGE Consultations 01/21/20 01:10 ED Decision to Admit Stat Procedures Performed Operation Date: 01/21/20 08:30 Actual Procedures p Laparoscopic Appendectomy(Not Applicable) - Asif Bolton, Ordered Studies 01/20/20 23:24 CT abd pelvis IV con only Urgent Hospital Course (1) Acute appendicitis: 49 y/o female presented to the ER with abdominal pain, nausea and vomiting. Her white count was 20,[address] was consistent with acute appendicitis with appendicolith. She was admitted to the surgical floor overnight and taken to the operating room for laparoscopic appendectomy in the morning. She was transferred back the floor and was able to tolerate diet and oral analgesics. She was stable for discharge home later that afternoon. Total Time Total Time Spent Total Time Spent (In Minutes): 10 Discharge Plan Discharge Items Patient Disposition: Home - Self-Care Reason For Visit: APPENDICITIS Discharge Diagnosis: laparoscopic appendectomy Activity: Per Instructions section Lifting: No more than 10 pounds Bathing Comment: may shower starting 01/22/20; no soaking in tubs Exercise/Sports: Wait until after follow-up appointment Driving/Machine Use: do not resume driving while taking narcotics for pain Non-emergency contact: Surgeon Call non-emergency contact if: you have any medication questions, your symptoms worsen, your pain is not controlled, your pain is worsening, you have a fever, your temperature is above 101.5, your wound has increased redness, your wound has increased drainage and your wound pain has increased Follow-up/Referrals: Asif Bolton, [Surgeon] - 02/02/20 9:10 am (please call to schedule follow up in clinic within 2 weeks) Chester Ayon MD [Primary Care Provider] - 01/28/20 3:30 pm Diet: Regular Addtl Attending Provider Instructions: Pending Studies at Discharge: Yes Studies:: surgical pathology Stand-Alone Forms: [facility] [employer], Smoking Cessation Medications and DC Order Prescriptions: New hydrocodone-acetaminophen [Jackson] 5-325 mg tablet 1 - 2 tab PO .q4-6h PRN (Reason: pain, for initial therapy, max 6 tabs per day) Qty: 15 RF: 0 Continued levonorgestrel-ethinyl estrad [Jolessa] 0.15 mg-30 mcg (91) Tablets,Dose Pack,3 Month 1 tab PO DAILY RF: 0 omega 0-rzs-ojs-fish oil [Fish Oil] 1,000 mg (120 mg-180 mg) Capsule 1 cap PO DAILY RF: 0 Elderberry Supplement 1 dose PO DAILY RF: 0 Discharge Orders: Discharge Order (Routine); Ordered 01/21/20 Ordered By: Agapito Galvez Admission Data Admit Date/Time: 01/21/20 01:18 Attending Provider: Asif Bolton Admit Provider: Asif Bolton Primary Care Provider: Chester Ayon Other Providers: Asif Bolton Coding Level of Care Code D/C Day Management <30 mins Diagnoses Acute appendicitis K35.30 Acute appendicitis type: with localized peritonitis Appendicitis abscess presence: without abscess Appendicitis gangrene presence: unspecified whether gangrene present Appendicitis perforation presence: without perforation
[2020-01-21 15:57] LABS: Appearance Urine Clear (Clear); Bilirubin Urine Negative (Negative); Blood Urine Trace (Negative); Color Urine Yellow; Glucose Urine UA 1+ (Negative); Ketones Urine Negative (Negative); Leukocyte Esterase Urine Negative (Negative); Nitrite Urine Negative (Negative); Protein Urine Negative (Negative); Specific Gravity Urine 1.006 (1.000-1.030); Urobilinogen Urine Negative (Negative); pH Urine 6.5 (4.5-7.5)
[2020-01-21 16:20] LABS: Bacteria Urine Automated Negative (Negative); Cast Urine Automated 0 /lpf (0-5); RBC Urine Automated 0-4 /hpf (0-4); WBC Urine Automated 0 /hpf (0-5)
== END 2020-01-21 16:22 | disposition home or self-care (01) ==
LOC: ED 23:02 → 3N 23:02